=== PATIENT | male | born 1945 | race Caucasian/White ===

== ENCOUNTER 2017-10-08 06:53 | Day surgery (SDC) | payer OTHER, BC ==
[2017-10-08] MEDS ORDERED: TETRACAINE 0.5% OPHTH 1 DOSE AFFEYE ONE ×4 (07:20→09:21)
[2017-10-08] MEDS ORDERED: VIGAMOX 0.5% OPHTH 1 DOSE AFFEYE ONE ×5 (07:21→09:37)
[2017-10-08] MEDS ORDERED: PROLENSA OPHTH 1 DOSE AFFEYE ONE (07:32)
[2017-10-08] MEDS ORDERED: ALPHAGAN-P OPHTH 1 DOSE AFFEYE ONE (07:33)
[2017-10-08] MEDS ORDERED: CYCLOGYL 1% OPHTH 1 DOSE OP ONE ×3 (07:34→07:36)
[2017-10-08] MEDS ORDERED: MYDRIACIL OPHTH 1 DOSE AFFEYE ONE ×3 (07:34→07:36)
[2017-10-08] MEDS ORDERED: AK-DILATE 2.5% OPHTH 1 DOSE OP ONE ×3 (07:34→07:36)
[2017-10-08] MEDS ORDERED: NS 500 ML IV 500 ML IV ONE (07:44)
[2017-10-08] MEDS ORDERED: BETADINE OPHTH SOLN 5% EACHEYE ONE (08:55)
[2017-10-08] MEDS ORDERED: BSS OPHTH (PLAIN) 500 ML with VANCOMYCIN HCL 500 MG VIAL 25 MG, ADRENALINE CHL INJ 1 MG IR ONE ×6 (09:10)
[2017-10-08] MEDS ORDERED: XYLOCAINE-MPF 1% IJ ONE ×2 (09:10→09:21)
[2017-10-08] MEDS ORDERED: DUOVISC IO ONE ×2 (09:10→09:21)
[2017-10-08] MEDS ORDERED: ADRENALINE CHL INJ IJ ONE ×2 (09:10→09:21)
[2017-10-08 10:03] VITALS: BP 160/83
[2017-10-08] MEDS ORDERED: DIPRIVAN VIAL ONE (15:45)
== END 2017-10-08 10:00 | disposition home or self-care (01) ==
LOC: SURG1 06:53
PROVIDERS: ATTEND Ophthalmology
PROC: 08DJ3ZZ Extraction of Right Lens, Percutaneous Approach (ICD-10-PCS; principal; 2017-10-08 08:15)
PROC: 08RJ3JZ Replacement of Right Lens with Synthetic Substitute, Percutaneous Approach (ICD-10-PCS; principal; 2017-10-08 08:15)
DX: H25.11 Age-related nuclear cataract, right eye (principal)
CPT/HCPCS: 99100; A4217; J0170; J3370; J3490

== ENCOUNTER 2017-10-22 10:41 | Day surgery (SDC) | payer OTHER, BC ==
[2017-10-22] MEDS ORDERED: TETRACAINE 0.5% OPHTH 1 DOSE AFFEYE ONE ×3 (10:45→14:00)
[2017-10-22] MEDS ORDERED: VIGAMOX 0.5% OPHTH 1 DOSE AFFEYE ONE ×5 (10:50→14:12)
[2017-10-22] MEDS ORDERED: PROLENSA OPHTH 1 DOSE AFFEYE ONE (11:01)
[2017-10-22] MEDS ORDERED: ALPHAGAN-P OPHTH 1 DOSE AFFEYE ONE (11:02)
[2017-10-22] MEDS ORDERED: CYCLOGYL 1% OPHTH 1 DOSE OP ONE ×3 (11:03→11:05)
[2017-10-22] MEDS ORDERED: AK-DILATE 2.5% OPHTH 1 DOSE OP ONE ×3 (11:03→11:05)
[2017-10-22] MEDS ORDERED: MYDRIACIL OPHTH 1 DOSE AFFEYE ONE ×3 (11:03→11:05)
[2017-10-22] MEDS ORDERED: NS 500 ML IV 500 ML IV ONE ×2 (11:06→12:35)
[2017-10-22] MEDS ORDERED: BETADINE OPHTH SOLN 5% EACHEYE ONE (13:52)
[2017-10-22] MEDS ORDERED: XYLOCAINE-MPF 1% IJ ONE (14:00)
[2017-10-22] MEDS ORDERED: ADRENALINE CHL INJ IJ ONE (14:00)
[2017-10-22] MEDS ORDERED: BSS OPHTH (PLAIN) 500 ML with VANCOMYCIN HCL 500 MG VIAL 25 MG, ADRENALINE CHL INJ 1 MG IR ONE ×3 (14:00)
[2017-10-22] MEDS ORDERED: DUOVISC IO ONE (14:00)
[2017-10-22] MEDS ORDERED: DIPRIVAN VIAL ONE (15:24)
[2017-10-22 17:49] VITALS: BP 145/72
== END 2017-10-22 14:32 | disposition home or self-care (01) ==
LOC: SURG1 10:41
PROVIDERS: ATTEND Ophthalmology
PROC: 08DK3ZZ Extraction of Left Lens, Percutaneous Approach (ICD-10-PCS; principal; 2017-10-22 17:30)
PROC: 08RK3JZ Replacement of Left Lens with Synthetic Substitute, Percutaneous Approach (ICD-10-PCS; principal; 2017-10-22 17:30)
DX: H25.12 Age-related nuclear cataract, left eye (principal); H25.012 Cortical age-related cataract, left eye
CPT/HCPCS: 99100; A4217; J0170; J3370; J3490